=== PATIENT | male | born 1950 | race Caucasian/White ===

== ENCOUNTER → 2023-09-30 10:56 | Outpatient (REF) | payer MEDICARE, OTHER, SELFPAY | LOC: HWRCS 10:56 | PROVIDERS: ATTENDING PHYSICIAN Internal Medicine Critical Care Medicine; FAMILY PHYSICIAN Family Medicine | DX: J84.9 Interstitial pulmonary disease, unspecified (principal) | CPT/HCPCS: 71260; 93306; Q9967 ==

== ENCOUNTER → 2024-05-29 13:42 | Outpatient (REF) | payer MEDICARE, OTHER, SELFPAY | LOC: HWRAD 13:42 | PROVIDERS: ATTENDING PHYSICIAN Otolaryngology; FAMILY PHYSICIAN Family Medicine | DX: J32.0 Chronic maxillary sinusitis (principal) | CPT/HCPCS: 70220 ==

== ENCOUNTER → 2024-07-02 08:18 | Outpatient (REF) | payer MEDICARE, OTHER, SELFPAY | LOC: RAD 08:18 | PROVIDERS: ATTENDING PHYSICIAN Internal Medicine Critical Care Medicine; FAMILY PHYSICIAN Family Medicine | DX: J84.9 Interstitial pulmonary disease, unspecified (principal); R13.10 Dysphagia, unspecified | CPT/HCPCS: 74230; 92611 ==

== ENCOUNTER → 2024-08-28 10:05 | Outpatient (REF) | payer MEDICARE, OTHER, SELFPAY | LOC: HWRAD 10:05 | PROVIDERS: ATTENDING PHYSICIAN Internal Medicine Critical Care Medicine; FAMILY PHYSICIAN Family Medicine | DX: J84.9 Interstitial pulmonary disease, unspecified (principal); R05.3 Chronic cough | CPT/HCPCS: 71250 ==

== ENCOUNTER → 2025-03-02 14:46 | Outpatient (REF) | payer MEDICARE, OTHER, SELFPAY | LOC: HWRCS 14:46 | PROVIDERS: ATTENDING PHYSICIAN Internal Medicine Critical Care Medicine; FAMILY PHYSICIAN Family Medicine | DX: R09.02 Hypoxemia (principal) | CPT/HCPCS: 93306 ==

== ENCOUNTER → 2025-03-29 14:54 | Outpatient (REF) | payer MEDICARE, OTHER, SELFPAY | LOC: RAD 14:54 | PROVIDERS: ATTENDING PHYSICIAN Family Medicine | DX: Z76.82 Awaiting organ transplant status (principal); M85.89 Other specified disorders of bone density and structure, multiple sites | CPT/HCPCS: 77080 ==

== ENCOUNTER 2025-06-08 17:50 | Emergency (ER) | payer MEDICARE, OTHER, SELFPAY ==
[2025-06-08 17:54] VITALS: BP 133/77
--- NOTE | 2025-06-08 19:23 | ED.GENMED ---
History of Present Illness
General
Chief Complaint: Skin Problem
Source: patient and spouse
Time Seen by Provider: 06/08/25 19:21
History of Present Illness
History of Present Illness:
75-year-old male with past medical history of idiopathic pulmonary fibrosis presenting to the emergency department for evaluation after he had a cardiac catheterization at [facility] yesterday, went to go take a dressing off his left forearm and sustained
a skin tear to the mid left forearm. Mild oozing but no active bleeding. Minimal pain. No other concerns. Patient is on Plavix.
Past History
Past History
ED Past Medical History: COPD and Hypercholesterolemia; Negative Asthma or NIDDM
ED Past Surgical History: Cardiac (Stent LAD)
Social History
Tobacco: Non-smoker
Alcohol: None
Drug: None
Personal:
Living: with family
Review of Systems
Review of Systems
All Other Systems: ROS reviewed and negative except as documented in HPI and ROS
Phy Exam
Physical Exam
Physical Exam:
GENERAL: Alert , in no apparent distress
EYE: conjunctiva clear
Head: Normocephalic atraumatic
NECK: Supple,
ENT: mmm.
LUNGS: no acute respiratory distress
NEUROLOGICAL: Alert and oriented
SKIN: Warm and dry, approximately 4 cm skin tear of the epidermal skin layer, slight oozing noted but no active bleeding. There is no skin edges to reapproximate
MUSCULOSKELETAL: well perfused.
PSYCH: Normal and appropriate interaction.
Scores
Heart Failure Risk
Heart Failure Risk Score: Not Applicable
Heart Score for Chest Pain Patients
STEMI patient?: Not applicable
Withdrawal Assessment of Alcohol
Withdrawal Assessment Completed?: Not applicable
Course
Vital Signs
Initial and Last Documented VS:
Initial Vital Signs
Temp Pulse Resp BP Pulse Ox
97.4 F 92 20 133/77 92
06/08/25 17:54 06/08/25 17:54 06/08/25 17:54 06/08/25 17:54 06/08/25 17:54
Last Documented Vital Signs
Temp Pulse Resp BP Pulse Ox
97.4 F 92 20 133/77 92
06/08/25 17:54 06/08/25 17:54 06/08/25 17:54 06/08/25 17:54 06/08/25 17:54
MDM/Problems Addressed
Differential Diagnosis Includes:
Skin tear
Laceration
No concern for infection or postoperative complication
MDM/Problems Addressed:
75-year-old male presenting to the emergency room for evaluation of a local skin wound. Wound is superficial. Will provide localized wound care. Dressing with a nonadherent pad with Kerlix wrap over top.. Can change dressing daily at home.
Follow-up with primary care provider. Aware of return precautions to the ER.
*Pulse Oximetry
SaO2: 92
Nasal Cannula flow liters per minute: 4
Patient hypoxic: no
*Critical Care Note
Total Time (30-74mins, 75-104mins- exclusive of procedures): Not Applicable
ED Attending Note
-
Portions of this chart may have been created with voice recognition software.� Occasional wrong word or��sound alike� substitutions may have occurred due to the inherent limitations of voice recognition software.
Discharge Plan
Departure
Patient Disposition: Home (Routine Discharge)
Date of Disposition: 06/08/25
Time of Disposition: 19:23
Patient with high blood pressure during this ER visit?: No
Discharge Problem:
Skin tear of left forearm without complication
Instructions: Wound Care (DC)
Prescriptions:
No Action
atorvastatin 40 MG tablet
40 mg PO QPM
aspirin 81 MG tablet,delayed release (DR/EC)
81 mg PO DAILY
famotidine 20 MG tablet
20 mg PO DAILY
Fiber Choice
2 tab PO DAILY
Saccharomyces Boulardii/Fos [Floranex One Probiotic Capsule] 1 EACH Capsule
2 ea PO DAILY
C,E,copper,zinc [id number] [Ocuvite Adult 50 Plus] 1 EACH capsule
1 cap PO DAILY
Referrals:
Real Damian MD [Family Provider, Family Practice]
Interventions
Interventions:
*General Assessment Last Done: 06/08/25 17:54
*Neglect/Abuse Screening Last Done: 06/08/25 17:54
*ED Influenza Vaccine History Last Done: 06/08/25 17:54
*Risk Screen - Suicide (C-SSRS) Last Done: 06/08/25 17:54
Discharge Date and Time
Print Language: TAJIK
== END 2025-06-08 19:49 | disposition home or self-care (01) ==
LOC: EMR 17:50
PROVIDERS: EMERGENCY PHYSICIAN Student in an Organized Health Care Education/Training Program; FAMILY PHYSICIAN Family Medicine
DX: S51.812A Laceration without foreign body of left forearm, initial encounter (principal); W49.9XXA Exposure to other inanimate mechanical forces, initial encounter; E78.00 Pure hypercholesterolemia, unspecified; J44.9 Chronic obstructive pulmonary disease, unspecified; J84.112 Idiopathic pulmonary fibrosis; Z79.02 Long term (current) use of antithrombotics/antiplatelets; Z95.5 Presence of coronary angioplasty implant and graft
CPT/HCPCS: 99282

== ENCOUNTER 2025-06-22 09:00 | Outpatient (RCR) | payer MEDICARE, OTHER, SELFPAY | END 2025-06-22 23:59 | disposition home or self-care (01) | LOC: PURB 09:00 | PROVIDERS: ATTENDING PHYSICIAN Internal Medicine Critical Care Medicine; FAMILY PHYSICIAN Family Medicine | DX: J84.9 Interstitial pulmonary disease, unspecified (principal) | CPT/HCPCS: G0237 ==